=== PATIENT | female | born 1985 | race Caucasian/White ===

== ENCOUNTER 2023-02-09 15:11 | Emergency (ER) | payer OTHER ==
[2023-02-09 15:30] VITALS: BP 119/70; PULSE 75; RESP 20; TEMP 98.2; BMI 33.0
[2023-02-09] MEDS ORDERED: TETANUS AND DIPHTHERIA TOXOID 0.5 ML DISP.SYRIN IM ONE (15:37)
[2023-02-09] MEDS ORDERED: DIPHTH,PERTUSS(ACELL),TET 0.5 ML DISP.SYRIN IM ONE ×2 (15:48→15:49)
[2023-02-09 16:18] LABS: BASO % 1.2 % (0-2.0); EOS % 8.1 % (0-4.5); HEMATOCRIT 36.2 % (32.4-45.2); HEMOGLOBIN 12.2 GM/dL (10.7-15.3); LYMPH % 40.3 % (8-40); MCH 30.2 pg (25.7-33.7); MCHC 33.7 g/dl (32.0-36.0); MEAN CELL VOLUME 89.8 fl (80-96); MEAN PLT VOLUME 9.4 fl (7.5-11.1); MONO % 4.5 % (3.8-10.2); NEUT % 45.9 % (42.8-82.8); PLATELET COUNT 262 10^3/uL (134-434); RBC 4.03 M/mm3 (3.60-5.2); RDW 13.7 % (11.6-15.6); WHITE BLOOD COUNT 6.8 K/mm3 (4.0-10.0)
[2023-02-09 17:10] LABS: POTASSIUM 3.9 mmol/L (3.5-5.1)
[2023-02-09 17:12] LABS: CALCIUM 8.7 mg/dL (8.5-10.1)
[2023-02-09 17:13] LABS: ALBUMIN 3.5 g/dl (3.4-5.0)
[2023-02-09 17:14] LABS: BLOOD UREA NITROGEN 11.4 mg/dL (7-18)
[2023-02-09 17:16] LABS: CREATININE 0.7 mg/dL (0.55-1.3)
[2023-02-09 17:17] LABS: PHOSPHOROUS 3.2 mg/dL (2.5-4.9)
[2023-02-09 17:18] LABS: TOT PROT 8.1 g/dl (6.4-8.2)
[2023-02-09 17:19] LABS: BILIRUBIN,TOTAL 0.4 mg/dL (0.2-1)
[2023-02-09 17:24] LABS: URIC ACID 3.7 mg/dL (2.6-7.2)
[2023-02-09 18:08] LABS: HIV INTERPRETATION NEGATIVE (NEGATIVE)
== END 2023-02-09 16:45 | disposition home or self-care (01) ==
LOC: JERFT 15:11
PROC: 3E0234Z Introduction of Serum, Toxoid and Vaccine into Muscle, Percutaneous Approach (ICD-10-PCS; principal; 2023-02-09)
DX: S60.411A Abrasion of left index finger, initial encounter (principal); W46.0XXA Contact with hypodermic needle, initial encounter; Y99.0 Civilian activity done for income or pay
CPT/HCPCS: 36415; 80053; 82465; 82977; 83615; 84100; 84478; 84550; 84703; 85025; 86704; 86803; 87340; 87389; 87517; 90715; 99283-25

== ENCOUNTER → 2024-09-25 | Day surgery (SDC) | payer OTHER ==
[2024-09-12 11:51] VITALS: BMI 31.2
[2024-09-25 11:54] VITALS: RESP 18; TEMP 98.8
[2024-09-25 12:14] VITALS: BP 107/77; PULSE 81
== END | disposition home or self-care (01) ==
LOC: JASU-ENDO 06:37
PROVIDERS: ATTEND Internal Medicine Gastroenterology
PROC: 0DBL8ZX Excision of Transverse Colon, Via Natural or Artificial Opening Endoscopic, Diagnostic (ICD-10-PCS; 2024-09-25)
PROC: 0DBN8ZX Excision of Sigmoid Colon, Via Natural or Artificial Opening Endoscopic, Diagnostic (ICD-10-PCS; 2024-09-25)
PROC: 0DBP8ZX Excision of Rectum, Via Natural or Artificial Opening Endoscopic, Diagnostic (ICD-10-PCS; 2024-09-25)
PROC: 0DBF8ZX Excision of Right Large Intestine, Via Natural or Artificial Opening Endoscopic, Diagnostic (ICD-10-PCS; 2024-09-25)
PROC: 0DBM8ZX Excision of Descending Colon, Via Natural or Artificial Opening Endoscopic, Diagnostic (ICD-10-PCS; principal; 2024-09-25 09:30)
DX: K52.9 Noninfective gastroenteritis and colitis, unspecified (principal); D12.8 Benign neoplasm of rectum; K64.8 Other hemorrhoids
CPT/HCPCS: 88305-TC